=== PATIENT | male | born 1985 | race Caucasian/White ===

== ENCOUNTER 2017-03-31 10:51 | Emergency (ER) | payer SELFPAY ==
[~2017-03-31] VITALS: Ht 165.1 cm; Wt 68.0 kg
[~2017-03-31 10:51] MED LIST: AMOXIL500 M1 PO; AMOXIL500 MG PO; DARVOCET-N 1001 EACH PO; KEFLEX 500MG.500 MG PO; LORTAB 500 MG-71 TAB PO; NAPROSYN500 M1 PO; NOMEDS; NOMEDS XX; TRAMADOL 50MG T50 MG PO; VOLTAREN75 MG PO
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
--- OUTSIDE RECORDS SUMMARY | 2017-03-31 11:23 | External Medical Summary Rpt | CCD ---
Author Author [employer] Organization [employer] Address Unknown Phone Unavailable Purpose Continuity of Care Document - through 2016
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
--- OUTSIDE RECORDS SUMMARY | 2017-03-31 11:24 | External Medical Summary Rpt ---
Author Author [employer], [employer] Organization [employer] Address Unknown Phone Unavailable Results CBC W Auto Differential panel in Blood Observa Value Referen Units Interpr Notes Date tion ce etation Range Basophils 0 - 0.2 K/MM3 Normal No Nov 01 informati 2017 6:20 [#/volume on in AM ] in source Blood by data Automated count Basophils 0.1 - 2.0 % Normal No Nov 01 / informati 2017 6:20 leukocyte on in AM s in source Blood by data Automated count Eosinophi 0.0 - 0.4 K/mm3 Normal No Nov 01 ls informati 2017 6:20 [#/volume on in AM ] in source Blood by data Automated count Eosinophi 0.1 - % Normal No Nov 01 ls/100 12.0 informati 2017 6:20 leukocyte on in AM s in source Blood by data Automated count Granulocy 1.3 - 8.0 K/mm3 High No Nov 01 sanjay informati 2017 6:20 [#/volume on in AM ] in source Blood by data Automated count Granulocy 37.0 - % Normal No Nov 01 sanjay/100 80.0 informati 2017 6:20 leukocyte on in AM s in source Blood by data Automated count Hematocri 42.0 - % Low No Nov 01 t [Volume 52.0 informati 2017 6:20 on in AM Fraction] source of Blood data Hemoglobi 14.1 - g/dL Low No Nov 01 n 18.0 informati 2017 6:20 [Mass/vol on in AM ume] in source Blood data Lymphocyt 0.7 - 4.5 K/mm3 Normal No Nov 01 es informati 2017 6:20 [#/volume on in AM ] in source Unspecifi data ed specimen by Automated count Lymphocyt 10 - 50 % Normal No Nov 01 es informati 2017 6:20 [#/volume on in AM ] in source Unspecifi data ed specimen by Automated count Erythrocy 27 - 31.2 pg Normal No Nov 01 te mean informati 2017 6:20 corpuscul on in AM ar source hemoglobi data n [Entitic mass] Erythrocy 31.8 - g/dl Normal No Oct 12 te mean 35.4 informati 2017 6:20 corpuscul on in AM ar source hemoglobi data n concentra tion [Mass/vol ume] by Automated count Erythrocy 82.2 - fl Normal No Oct 12 te mean 97.8 informati 2017 6:20 corpuscul on in AM ar volume source [Entitic data volume] by Automated count Monocytes 0.1 - 1.0 K/mm3 Normal No Akil 12 informati 2017 6:20 [#/volume on in AM ] in source Blood by data Automated count Monocytes 1.7 - 9.3 % Normal No Akil 12 /100 informati 2017 6:20 leukocyte on in AM s in source Blood by data Automated count Platelet 7.4 - fl Normal No Oct 12 mean 10.4 informati 2017 6:20 volume on in AM [Entitic source volume] data in Blood by Automated count Platelets 142 - 424 K/mm3 Low No Oct 12 informati 2017 6:20 [#/volume on in AM ] in source Blood data Erythrocy 4.6 - 6.2 M/mm3 Low No Oct 12 sanjay informati 2017 6:20 [#/volume on in AM ] in source Amniotic data fluid Erythrocy 11.5 - % Normal No Oct 12 te 17.5 informati 2017 6:20 distribut on in AM ion width source [Entitic data volume] by Automated count Leukocyte 4.8 - K/MM3 High No Oct 12 s 10.8 informati 2017 6:20 [#/volume on in AM ] in source Blood data Basic metabolic panel in Blood Observa Value Referen Units Interpr Notes Date tion ce etation Range Urea 7 - 18 mg/dL Normal No Oct 12 nitrogen informati 2017 6:20 [Mass/vol on in AM ume] in source Serum or data Plasma Calcium 8.5 - mg/dL Low No Oct 12 [Mass/vol 10.1 informati 2017 6:20 ume] in on in AM Serum or source Plasma data Chloride 98 - 107 mmoL/L Normal No Oct 12 [Moles/vo informati 2017 6:20 lume] in on in AM Serum or source Plasma data Carbon 21.0 - mmoL/L Normal No Oct 12 dioxide, 32.0 informati 2017 6:20 total on in AM [Moles/vo source lume] in data Serum or Plasma Creatinin 0.70 - mg/dL No No Nov 01 e 1.30 informati informati 2017 6:20 [Mass/vol on in on in AM ume] in source source Serum or data data Plasma Creatinin 50 - 200 ML/MIN No No Nov 01 e renal informati informati 2017 6:20 clearance on in on in AM source source predicted data data by Cockcroft -Gault formula Estimated >60 ML/MIN No REFERENCE Nov 01 informati RANGE: 2017 6:20 glomerula on in >60 AM r source ML/MIN/1. filtratio data 73 SQUARE n rate METERSIf (GF this patient is -A merican, then multiply theresult by 1.210. Glucose 74 - 106 mg/dL High No Nov 01 [Mass/vol informati 2017 6:20 ume] in on in AM Serum or source Plasma data Potassium 3.5 - 5.1 mmoL/L Low alert Nov 01 2016 6:20 [Moles/vo CRITICAL AM lume] in RESULTS Serum or Plasma RESU LTS CALLED TO: JERAD 11/01/16 0647 Chinyere Loyd e Sodium 136 - 145 mmoL/L Low No Nov 01 [Moles/vo informati 2017 6:20 lume] in on in AM Serum or source Plasma data Fibrin D-dimer FEU [Mass/volume] in Platelet poor plasma Observa Value Referen Units Interpr Notes Date ti ce etation Range Fibrin 0 - 400 ng/mL High Oct 31 D-dimer alert NOTIFICAT 2017 1:49 FEU ION AM [Mass/vol RESULT ume] in The Platelet D-Dimer poor values plasma are presented in units of mass(ng/m L) ofD-Dimer units(DDU ).This test has been FDA approved as an aid in the assessmen tand evaluatio n of suspected DIC, and thromboem bolic eventsinc luding PE and DVT. However, it does not have approvalf or cut-off values for the exclusion of these condition s. CBC W Auto Differential panel in Blood Observa Value Referen Units Interpr Notes Date tion ce etation Range Basophils 0 - 0.2 K/MM3 Normal No Oct 11 informati 2016 1:49 [#/volume on in AM ] in source Blood by data Automated count Basophils 0.1 - 2.0 % Normal No Oct 11 /100 informati 2016 1:49 leukocyte on in AM s in source Blood by data Automated count Eosinophi 0.0 - 0.4 K/mm3 Normal No Oct 31 ls informati 2016 1:49 [#/volume on in AM ] in source Blood by data Automated count Eosinophi 0.1 - % Normal No Oct 31 ls/100 12.0 informati 2016 1:49 leukocyte on in AM s in source Blood by data Automated count Granulocy 1.3 - 8.0 K/mm3 High No Oct 31 sanjay informati 2016 1:49 [#/volume on in AM ] in source Blood by data Automated count Granulocy 37.0 - % High No Oct 31 sanjay/100 80.0 informati 2016 1:49 leukocyte on in AM s in source Blood by data Automated count Hematocri 42.0 - % Low No Oct 31 t [Volume 52.0 informati 2016 1:49 on in AM Fraction] source of Blood data Hemoglobi 14.1 - g/dL Low No Oct 31 n 18.0 informati 2016 1:49 [Mass/vol on in AM ume] in source Blood data Lymphocyt 0.7 - 4.5 K/mm3 Normal No Oct 31 es informati 2016 1:49 [#/volume on in AM ] in source Unspecifi data ed specimen by Automated count Lymphocyt 10 - 50 % Normal No Oct 31 es informati 2016 1:49 [#/volume on in AM ] in source Unspecifi data ed specimen by Automated count Erythrocy 27 - 31.2 pg Normal No Oct 31 te mean informati 2016 1:49 corpuscul on in AM ar source hemoglobi data n [Entitic mass] Erythrocy 31.8 - g/dl Normal No Oct 31 te mean 35.4 informati 2016 1:49 corpuscul on in AM ar source hemoglobi data n concentra tion [Mass/vol ume] by Automated count Erythrocy 82.2 - fl Normal No Oct 31 te mean 97.8 informati 2016 1:49 corpuscul on in AM ar volume source [Entitic data volume] by Automated count Monocytes 0.1 - 1.0 K/mm3 Normal No Oct 31 informati 2016 1:49 [#/volume on in AM ] in source Blood by data Automated count Monocytes 1.7 - 9.3 % Normal No Oct 31 informati 2016 1:49 leukocyte on in AM s in source Blood by data Automated count Platelet 7.4 - fl Normal No Oct 31 mean 10.4 informati 2016 1:49 volume on in AM [Entitic source volume] data in Blood by Automated count Platelets 142 - 424 K/mm3 Low No Oct 31 informati 2016 1:49 [#/volume on in AM ] in source Blood data Erythrocy 4.6 - 6.2 M/mm3 Normal No Oct 31 sanjay informati 2016 1:49 [#/volume on in AM ] in source Amniotic data fluid Erythrocy 11.5 - % Normal No Oct 31 te 17.5 informati 2016 1:49 distribut on in AM ion width source [Entitic data volume] by Automated count Leukocyte 4.8 - K/MM3 High No Oct 31 s 10.8 informati 2016 1:49 [#/volume on in AM ] in source Blood data Differential panel, method unspecified - Observa Value Referen Units Interpr Notes Date tion ce etation Range Neutrophi 0 - 8 % High No Oct 31 ls.band informati 2017 1:49 form/100 on in AM leukocyte source s in data Blood by Automated count LYMPH 4 10 - 50 % Low No Oct 31 inform2016 tion in 1:49 AM source data Monocytes 2 - 9 % Low No Oct 31 informati 2016 1:49 leukocyte on in AM s in source Blood by data Automated count Platele CLUMPED No No No No Oct 31 ts informa informa informa informa 2016 [Presen tion in tion in tion in tion in 1:49 AM ce] in source source source source Blood data data data data by Light microsc opy Neutrophi 42 - 76 % High No Oct 31 ls informati 2016 1:49 [#/volume on in AM ] in source Blood by data Automated count Erythro NORMAL No No No No Oct 31 cyte informa informa informa informa 2017 morphol tion in tion in tion in tion in 1:49 AM ogy source source source source finding data data data data [Identi fier] in Blood Cells No #CELLS No No Oct 31 Counted informati informati informati 2016 1:49 Total [#] on in on in on in AM in Blood source source source data data data Lactate [Moles/volume] in Blood Observa Value Referen Units Interpr Notes Date tion ce etation Range Lactate 0.4 - 2.0 mmol/L Normal No Oct 31 [Moles/vo informati 2017 1:49 lume] in on in AM Blood source data
--- OUTSIDE RECORDS SUMMARY | 2017-03-31 11:24 | External Medical Summary Rpt | CCD ---
Author Author , ALVIN ESQUIVEL Address Unknown Phone [email or web address] Immunization Name Date Rout CVX Reac Dose Comm Prov Is Faci e tion ent ider Refu lity Give sed n Hep 07-0 42 999 Hist H149 No H149 B, 9-19 ori adol 97 al Info High rmat Ris ion - Sour ce Unsp ecif ied Hep 12-0 42 999 Hist H149 No H149 B, 4-19 oric adol 96 al Info High rmat Ris ion - Sour ce Unsp ecif ied Hep 08-3 8 999 Hist H149 No H149 B, 0-19 ori ped/ 96 al adol Info rmat ion - Sour ce Unsp ecif ied
--- OUTSIDE RECORDS SUMMARY | 2017-03-31 11:24 | External Medical Summary Rpt | CCD ---
Author Author , ALVIN ESQUIVEL Address Unknown Phone [email or web address] Immunization Name Date Rout CVX Reac Dose [...]
[2017-03-31] MEDS ORDERED: MOTRIN 600MG.600 MG PO (11:36)
[2017-03-31] MEDS ORDERED: CLINDAMYCIN HC150 MG PO (11:36)
[2017-03-31] MEDS ORDERED: BACTRIM DS TAB1 EACH PO (11:36)
--- NOTE | 2017-03-31 11:39 | Emergency Room Report ---
History of Present Illness Time Seen by 1120 Presenting Problem in Triage Pt arrived:Walked Presenting Problem:LEFT SIDE FACIAL SWELLING AFTER BITING INSIDE OF MOUTH ACCIDENTALLY 48 HRS PRIOR TO ARRIVAL Onset of symptoms date/time:/ or onset unknown for:MEDICAL HX UNKNOWN Treatment Prior to Arrival: [employer] Provided by: Sepsis Risk Assessment: Temp: 98.3 B/P: 136/87 MAP: 103 Pulse: 95 Resp: 18 Recent fever? N Clinical Suspician of Infection? N Mental Status: 1 - Regular (Normal Baseline) Sepsis Risk:Low Sepsis Risk Have you (or family members/close friends) recently traveled outside the [place]? N If Yes, where/when: Have you had exposure to infectious disease within the past month? TB? Other? Specify: I read the above triage and the patietn provised a different version. The patient is 32 years old white male with a history of valve disease. He has no tenderness. He was eating meat but he does not recall biting himself from the inside. According to his own words he said he pulled some hand from his LEFT mustache area that is after the scab. He developed redness and swelling progressively to the LEFT lower eyelids. He denies having fever or neck pain. He denies having loss of consciousness. He denies having nausea or vomiting. He has no ALLERGY to antibiotics. Source patient, RN notes reviewed, family (girlfriend) Exam Limitations no limitations ALLERGIES Coded Allergies: promethazine (From [facility]) (03/31/17) Home Medications Reported Medications No Home Medications (NO HOME MEDICATIONS) 1 EACH XX ONCE History Medical History General CAD? No Angina: No IN: No Hypertension? No Hyperlipidemia? No CHF? No DVT? No PE? No COPD? No Asthma? Yes Anemia? No GERD? No Gastric ulcers? No GI Bleed? No Hernia? No Thyroid Problems? No Hypothyroidism? No CVA? No Seizures? Yes Diabetes? No Renal Insuffiency? No End Stage Renal Disease? No UTI? No Stones? No BPH? No GB Disease: No Nephritic Syndrome? No Asplenia? No Hepatitis? No Sickle Cell Disease? No Arthritis? No Migraines? No Cataracts? No Glaucoma? No MRSA? No HIV? No TB? No Anxiety? No Depression? No Cancer? No More? No Immunization Hx Ped.Immunizations UTD Yes DT/Tetanus > 10 Years Ago Pneumonia Never Had Surgical Hx Previous Surgery?Y R WRIST FRACTURE Social History Smoking Hx Smoker: Current Every Day Smoker Tobacco: Yes Type N/A Packs/day 1 1/2 - 2 Packs Alcohol Alcohol: No Review of Systems All Other Systems Reviewed and Negative Constitutional no symptoms reported Eyes see HPI (edema of the LEFT lower eyelid) ENT no symptoms reported. Respiratory no symptoms reported Cardiovascular no symptoms reported Gastrointestinal no symptoms reported Genitourinary no symptoms reported. Musculoskeletal no symptoms reported Skin see HPI Psychiatric/Neurological no symptoms reported Physical Exam Vital Signs Vital Signs Date Time Temp Pulse Resp B/P Pulse O2 O2 Flow FiO2 Ox Delivery Rate 03/31 1058 95 18 136/87 99 03/31 1056 98.3 95 18 136/ 99 - WBC >12,000 or <4,000 or 10% bands? 2 or more SIRS Criteria Met? B/P:136/87 MAP:103 Creatinine >2.0? UA output<0.5ml/kg/hr for 2 hrs? Platelet count >100,000? Lactate >2.0mmol/1? INR >1.2 or PTT > than 60 sec? Evidence of Organ Dysfunction? Provider documented clinical suspician of infection? N Sepsis Criteria Count: 1 Sepsis Risk: Low Sepsis Risk General Appearance normal appearance, WD/WN, no apparent distress Eye Exam - left eye eyelid inflammation (the LEFT lower eyelid edema), bilateral eye normal exam, bilateral eye PERRL, bilateral eye EOMI Ear, Nose, Throat there was no, bimanual examination revealed no gum disease, edema the LEFT cheek with no focal fluid collection, normal TMJ. Neck normal inspection, non-tender, supple, full range of motion Respiratory Status Yes: trachea midline, chest symmetrical, non tender chest. No: respiratory distress. Lung Sounds bilateral: normal breath sounds, lungs clear. Cardiovascular normal exam, regular rate/rhythm, no peripheral edema, no gallop, no JVD, no murmur, no rub, normal peripheral pulses Peripheral Pulses Pulses normal Yes Gastrointestinal normal bowel sounds, normal exam, non tender, soft, no organomegaly Back normal inspection, no CVA tenderness, no vertebral tenderness Extremities non-tender, normal range of motion, normal inspection Neurologic alert, complex commercial litigation paralegal II-XII nml as tested, normal exam, oriented x 3 Reflexes Reflexes normal Yes Mental status normal mood/affect Skin examination of this facial skin revealed a scab on the LEFT upper lip. It seems to be the point of entry of infection. 2. Diffuse edema of the LEFT cheek with no fluid collection on bimanual examination. Lymphatic no adenopathy Medical Decision Making LABS/Meds/Orders Pt receiving controlled substance in ED? No Departure Departure Time of Disposition 1132 Disposition DC Home or Self Care(routine) Clinical Impression Primary Impression: Facial cellulitis Secondary Impressions: Tobacco use Condition STABLE Referrals Krista CLAY,Ricardo Sethi Additional Instructions 1- HOB 60 degree. 2- stop smoking 3- no hot drinks or food, cold drink preffered. 4- start abx immediately and space them. 5- observe temp bid and return if fever deveolps 5- return for rechecin 2-3 days. 6- establish pcp. Discharge Counseling Counseled pt/family regarding diagnosis, test results, home care, follow up needs Prescriptions Current Visit Scripts CLINDAMYCIN HCL (Clindamycin 150MG CAP) 300 MG PO Q8 #30 CAPSULE Sulfamethoxazole/Trimethoprim (Bactrim Ds Tablet) 2 EACH PO BID #40 TAB IBUPROFEN (Motrin 600MG) 600 MG PO Q6HP PRN swelling and pain #20 TAB ED Critical Care Critical Care No If Critical Care minutes are documented, the time involved in the performance of seperately reportable procedures was not counted toward critical care time documented. I directly delivered medical care to this critically ill and/or injured patient. Timely evaluation and treatment was necessary to address the significant organ system(s) dysfunction present in this patient. at 1131
[2017-03-31 11:42] VITALS: BP 136/87
== END 2017-03-31 11:42 | disposition home or self-care (01) ==
LOC: ER 10:51
DX: K12.2 Cellulitis and abscess of mouth (principal); F17.210 Nicotine dependence, cigarettes, uncomplicated